=== PATIENT | female | born 1990 | race Caucasian/White ===

== ENCOUNTER 2016-12-01 13:26 | Emergency (ER) | payer MEDICAID ==
[2016-12-01] MEDS ORDERED: LIDOCAINE HCL 2% JELLY 1 APP/5 ML TUBE ONE (14:30)
[2016-12-01] MEDS ORDERED: LIDOCAINE HCL 1% 20 ML VIAL ONE (14:39)
[2016-12-01] MEDS ORDERED: BENZOCAINE/LANOLIN/ALOE 1 SPRAY BOTTLE TOPICAL ONE (15:00)
[2016-12-01] MEDS ORDERED: TETANUS/DIPTHERIA 0.5 ML DISP.SYRIN IM ONE (15:38)
--- NOTE | 2016-12-01 15:41 | ER NURSING DOCUMENTATION ---
Nurse's Notes [facility] Name:Oanh Rosario Age:26 yrs Sex:Female :1990 Arrival Date:12/01/2016 Time:13:26 Bed3 Private MD:Megha Hernandez Diagnosis:Vaginal Laceration Presentation: 12/01 13:32 Transition of care: Home. nf 13:32 Acuity: BEN 3 nf 13:32 Method Of Arrival: Walk In nf 13:48 Notified ED Physician of patient's arrival and CC Mack Bear notified. nf 13:48 Presenting complaint: Patient states: vaginal pain and labial pain, concerned her IUD nf has migrated and cut her; last intercourse 2 days ago, boyfriend has a genital piercing. Triage Assessment: 13:51 General: Appears in no apparent distress, well nourished, well groomed, Behavior is nf anxious. Pain: Complains of pain in vagina and labia. Historical: - Allergies: No known drug Allergies; - Home Meds: 1. None - PMHx: gravida5 para0; - PSHx: ankle; multiple D&Cs; - Tetanus: unknown. - Ebola Screening: : No symptoms or risks identified at this time. . - Immunization history: Unable to Obtain. - Social history: Smoking status: Patient uses tobacco products, current every day smoker. Patient uses alcohol occasionally. marijuana. Screenin:54 Infectious Disease Risk None. Abuse screen: Denies threats or abuse. Nutritional nf screening: No deficits noted. Assessment: 13:54 See Triage Assessment done by same RN. GI: Abdomen is non- distended. nf 14:58 Reassessment: Saida in ER for exam and laceration repair, escorted by OB nurse nf Stephenie. Vital Signs: 13:52 BP 128 / 82; Pulse 98; Resp 16; Temp 98.1(O); Pulse Ox 94% on R/A; Weight 81.65 kg; nf Height 5 ft. 11 in. (180.34 cm); Pain 6/10; 14:20 BP 146 / 90; Pulse 93; Resp 18; Pulse Ox 95% on R/A; dg 15:12 BP 136 / 100; Pulse 88; Resp 22; Pulse Ox 92% on R/A; dg 15:32 BP 137 / 83; dg 13:52 Body Mass Index 25.10 (81.65 kg, 180.34 cm) nf ED Course: 13:29 Patient arrived in ED. arc 13:29 Megha Hernandez is Private Physician. arc 13:32 Evie Thomas, RN is Primary Nurse. nf 13:32 Triage completed. nf 13:54 Arm band placed on Bed in low position Call Light in Reach Gowned HOB Elevated Side nf rails up x1. 13:54 Valuables Remains with patient. Door closed. Noise minimized. Lights dimmed. Moved to private room. Verbal reassurance given. Warm blanket given. Pillow given. Diet: Patient is NPO. 13:56 Ashok Giron MD is Attending Physician. 14:21 Assist Provider Assist provider with pelvic exam: Performed by Ashok Giron MD Patient nf tolerated poorly. chaperoned by [facility] nurse Stephenie. 15:14 Jimmy Valdivia MD is Referral Physician. 15:[address] Valdivia with vaginal exam, speculum exam, and repair dg of laceration of labia minora. 15:17 Assist Provider Assist provider with laceration repair on labia minor that was between nf 2.6 to 7.5 cm using sutures. Set up tray. Performed by Jimmy Valdivia MD Dressed with none Patient tolerated well. Administered Medications: 14:20 Drug: Lidocaine Ointment (2%) 1 application; {Note: by [facility] nurse Stephenie.} nf Route: Topical; Site: wound; 15:42 Follow up: Response: No adverse reaction nf 15:00 Drug: Lidocaine (1 %) 10 ml; {Note: to bedside for administration by DrK.} Route: nf Infiltration; 15:41 Follow up: Response: No adverse reaction nf 15:28 Drug: Adacel 0.5 ml; {Vault Person: Sanofi Pasteur ([employer]). Exp: 08/15/2018. Lot #: [id number]. } Route: IM; Site: right deltoid; 15:41 Follow up: Response: No adverse reaction nf Outcome: 15:14 Discharge ordered by . 15:36 Discharged to home ambulatory. nf 15:36 Condition: improved 15:36 Discharge Assessment: Patient awake, alert and oriented x 3. No cognitive and/or functional deficits noted. Patient verbalized understanding of disposition instructions. 15:36 Discharge instructions given to patient, Instructed on discharge instructions, follow up and referral plans. wound care, Demonstrated understanding of instructions. 15:41 Patient left the ED. nf 12/02 14:02 Discharge F/U Call: Unable to reach: no answer domingo Signatures: Brynn Sosa RN Evie Edouard ma, RN RN nf Meyer, John, MD MD jm Green, Debra dg Chew, Amelia, Ronnie Reg arc
--- NOTE | 2016-12-01 15:41 | ER PHYSICIAN DOCUMENTATION ---
Physician Documentation [facility] Name:Oanh Rosario Age:26 yrs Sex:Female :1990 Arrival Date:12/01/2016 Time:13:26 Bed3 Private MD:Megha Hernandez ED, John Disposition: 12/01/16 15:14 Discharged to Home/Self Care. Impression: Vaginal Laceration. - Condition is Good. - Discharge Instructions: VAGINAL TEAR (non-obstetric). - Medical Reconciliation form form. - Follow up: Jimmy Valdivia MD; When: FridayDecember 09; Reason: Recheck today's complaints, Continuance of care. - Problem is new. - Symptoms have improved. HPI: 12/01 14:41 This 26 yrs old Female presents to ER via Walk In with complaints of Vaginal jm Pain. 14:41 The patient presents with vaginal bleeding that is moderate, laceration to the L inner jm labia minora fold. . Onset: The symptoms/episode began/occurred today. Associated signs and symptoms: Pertinent positives: hematuria. The patient has not experienced similar symptoms in the past. Pt states that 3 days she was having intercourse w her boyfriend and it hurt. She noted some bleeding and pain, but thought she was on her period. Today she was urinating and felt a tear and started bleeding. She said she bleed a lot, but its the pain that brought her in. She noted a tear when examining herself. . Historical: - Allergies: No known drug Allergies; - Home Meds: 1. None - PMHx: gravida5 para0; - PSHx: ankle; multiple D&Cs; - Tetanus: unknown. - Ebola Screening: : No symptoms or risks identified at this time. . - Immunization history: Unable to Obtain. - Social history: Smoking status: Patient uses tobacco products, current every day smoker. Patient uses alcohol occasionally. marijuana. ROS: 14:52 Positive for pelvic pain, hematuria, vaginal bleeding. 14:52 Constitutional: Negative for fever, malaise. 14:52 Skin: Positive for laceration(s). 14:52 Hematologic/Lymphatic: Negative for abnormal bleeding, swollen nodes. Exam: 14:53 Constitutional: The patient appears alert, awake. 14:53 Cardiovascular: Rate: normal, Rhythm: regular. 14:53 Respiratory: Respirations: normal, Breath sounds: are normal. 14:53 Abdomen/GI: Inspection: abdomen appears normal, Palpation: abdomen is soft and non-tender. 14:53 : Pelvic Exam: External exam: 3cm superficial mucosal laceration to the L inner labia minora fold that is oozing blood. I could not examine further due to pain. , the nurse was present for the exam, Bladder: is normal. 14:53 Psych: Behavior/mood is pleasant, cooperative, anxious, Affect is calm. Vital Signs: 13:52 BP 128 / 82; Pulse 98; Resp 16; Temp 98.1(O); Pulse Ox 94% on R/A; Weight 81.65 kg; nf Height 5 ft. 11 in. (180.34 cm); Pain 6/10; 14:20 BP 146 / 90; Pulse 93; Resp 18; Pulse Ox 95% on R/A; dg 15:12 BP 136 / 100; Pulse 88; Resp 22; Pulse Ox 92% on R/A; dg 15:32 BP 137 / 83; dg 13:52 Body Mass Index 25.10 (81.65 kg, 180.34 cm) nf MDM: 13:55 Patient medically screened. jm 14:55 Differential diagnosis: vaginal trauma. Data reviewed: vital signs, nurses notes, and jm as a result, I will initiate a consult, from a WRAPPER STRIPPER. Counseling: I had a detailed discussion with the patient and/or guardian regarding: the historical points, exam findings, and any diagnostic results supporting the discharge/admit diagnosis. Physician consultation: Jimmy Valdivia MD regarding patient's condition, and will see patient in ED, immediately. ED course: DR. Treviño will sew the laceration. . Dispensed Medications: 14:20 Drug: Lidocaine Ointment (2%) 1 application; {Note: by [facility] nurse Stephenie.} nf Route: Topical; Site: wound; 15:42 Follow up: Response: No adverse reaction nf 15:00 Drug: Lidocaine (1 %) 10 ml; {Note: to bedside for administration by DrKamila.} Route: nf Infiltration; 15:41 Follow up: Response: No adverse reaction nf 15:28 Drug: Adacel 0.5 ml; {Mangle Roll Operator: Sanofi Pasteur ([employer]). Exp: 08/15/2018. Lot #: [id number]. } Route: IM; Site: right deltoid; 15:41 Follow up: Response: No adverse reaction nf Signatures: Evie Thomas RN RN nf Meyer, John, MD MD jm Green, Debra dg
== END 2016-12-01 15:41 | disposition home or self-care (01) ==
LOC: ER 13:26
DX: S31.41XA Laceration without foreign body of vagina and vulva, initial encounter (principal); W45.8XXA Other foreign body or object entering through skin, initial encounter; Z23 Encounter for immunization; F17.210 Nicotine dependence, cigarettes, uncomplicated
CPT/HCPCS: 12002; 90471; 90715; 99283

== ENCOUNTER 2017-03-01 10:53 | Emergency (ER) | payer MEDICAID ==
--- NOTE | 2017-03-01 11:16 | ER NURSING DOCUMENTATION ---
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 Transition sc1 of care: Home. Complicating Factors: There are no complicating factors for this patient. Notified ED Physician of patient's arrival and CC Dr. Pollock notified. 10:56 Acuity: BEN 4 sc1 10:56 Method Of Arrival: Private Vehicle sc1 Triage Assessment: 11:02 General: Appears in no apparent distress, well developed, well nourished, well groomed, sc1 Behavior is cooperative, pleasant. Pain: Complains of pain in Right first web space. Injury Description: Puncture sustained to right hand is superficial, was sustained less than 30 minutes ago. Historical: - Allergies: No known drug Allergies; - Home Meds: 1. Etanercept - PMHx: None; - PSHx: None; - Ebola Screening: : Patient negative for fever greater than or equal to 101.5 degrees Fahrenheit, and additional compatible Ebola Virus Disease symptoms. Patient denies exposure to infectious person. Patient denies travel to an Ebola-affected area in the 21 days before illness onset. No symptoms or risks identified at this time. . - Immunization history: Flu Vaccine < 1 year. - Social history: Smoking status: Patient states was never smoker of tobacco. Patient/guardian denies using alcohol, street drugs, IV drugs, marijuana. Screenin:04 Infectious Disease Risk None. Abuse screen: Denies threats or abuse. Nutritional sc1 screening: No deficits noted. Vital Signs: 10:59 BP 116 / 64; Pulse 79; Resp 16; Temp 98.4(O); Pulse Ox 97% on R/A; Weight 86.18 kg (R); arc Height 5 ft. 11 in. (180.34 cm) (R); Pain 7/10; 10:59 Body Mass Index 26.50 (86.18 kg, 180.34 cm) arc ED Course: 10:54 Patient arrived in ED. ama 10:55 Megha Hernandez is Private Physician. ama 10:56 Rachael López, RN is Primary Nurse. [facility] 10:58 Waldemar Pollock MD is Attending Physician. [facility] 11:01 Triage completed. wi1 11:03 Notified ED Physician of patient's arrival and chief complaint. Dr. Pollock notified. Arm sc1 band placed on Bed in low position Call Light in Reach. 11:09 Wound care to puncture located on left hand was cleaned with soap and water, dressed arc with bacitracin cling, band aid, Patient tolerated well. 11:10 Megha Hernandez is Referral Physician. tl1 Administered Medications: No medications were administered Outcome: 11:11 Discharge ordered by MD. 1 11:14 Discharged to home ambulatory. [facility] [place] 11:14 Condition: stable 11:14 Discharge instructions given to patient, Instructed on discharge instructions, follow up and referral plans. medication usage, Demonstrated understanding of instructions, medications, Prescriptions given X 1. 11:15 Patient left the ED. [facility] [place] 07/02 14:58 Discharge F/U Call: Unable to reach: no answer lc Signatures: Maxine Oglesby, ERIN RN Rachael López, ERIN RN wi1 Alfred Landeros, Reg Reg neftalia Waldemar Pollock MD MD [facility] Lexie Hernandez, Reg Reg arc
--- NOTE | 2017-03-03 11:15 | ER PHYSICIAN DOCUMENTATION ---
Physician Documentation [facility] Name:Oanh Rosario Age:26 yrs Sex:Female :1990 Arrival Date:03/01/2017 Time:10:53 Bed1 Private MD:Megha Hernandez ED, Tom Disposition: 03/01/17 11:11 Discharged to Home/Self Care. Impression: Puncture Wound of Hand. - Condition is Good. - Discharge Instructions: LACERATION, Hand. - Prescriptions for Keflex 500 mg Oral Capsule - take 1 capsule by ORAL route every 6 hours for 10 days; 40 capsule. - Medical Reconciliation form form. - Follow up: Megha Hernandez; When: 2 - 3 days; Reason: Recheck today's complaints. - Problem is new. - Symptoms have improved. HPI: 03/01 11:05 This 26 yrs old Female presents to ER via Private Vehicle with complaints of tl1 Laceration To Hand - LEFT. 11:05 The patient has a laceration related to: a puncture wound from a knife , occurred at tl1 home, and there are no complicating factors. The injury was as she was cutting some prime rib, the knife slipped, poking into her thenar eminence of the left hand. There was some brief bleeding and she washed it out right away. She came in concerned about the bleeding (which has now stopped) and concern about the possible need for sutures. No other complaints.. The laceration(s) is(are) located on the palm of left hand, thenar eminence. Historical: - Allergies: No known drug Allergies; - Home Meds: 1. Etanercept - PMHx: None; - PSHx: None; - Ebola Screening: : Patient negative for fever greater than or equal to 101.5 degrees Fahrenheit, and additional compatible Ebola Virus Disease symptoms. Patient denies exposure to infectious person. Patient denies travel to an Ebola-affected area in the 21 days before illness onset. No symptoms or risks identified at this time. . - Immunization history: Flu Vaccine < 1 year. - Social history: Smoking status: Patient states was never smoker of tobacco. Patient/guardian denies using alcohol, street drugs, IV drugs, marijuana. ROS: 11:10 Constitutional: Negative for fever, chills, and weight loss. tl1 11:10 Skin: Positive for puncture. 11:10 All other systems are negative. Exam: 11:10 Musculoskeletal/extremity: Extremities: grossly normal except: noted in the left tl1 thenar eminence: puncture, 7 mm long. 11:10 Constitutional: The patient appears in no acute distress, alert, awake, comfortable, non-toxic. 11:10 Cardiovascular: Rate: normal. 11:10 Respiratory: Respirations: normal. 11:10 Skin: see above. Vital Signs: 10:59 BP 116 / 64; Pulse 79; Resp 16; Temp 98.4(O); Pulse Ox 97% on R/A; Weight 86.18 kg (R); arc Height 5 ft. 11 in. (180.34 cm) (R); Pain 7/10; 10:59 Body Mass Index 26.50 (86.18 kg, 180.34 cm) arc MDM: 10:58 Patient medically screened. tl1 11:15 Differential diagnosis: superficial laceration. Data reviewed: vital signs, nurses tl1 notes, and as a result, I will discharge patient. Counseling: I had a detailed discussion with the patient and/or guardian regarding: the historical points, exam findings, and any diagnostic results supporting the discharge/admit diagnosis, the need for outpatient follow up, to return to the emergency department if symptoms worsen or persist or if there are any questions or concerns that arise at home. Response to treatment: There is no appreciated change of the patient's symptoms at this time, and as a result, I will discharge patient. Special discussion: This is a superficial injury. I told her the best treatment now would be to numb it up, irrigate it, and dress it. she declined the numbing and irrigation, said she had cleaned it out at home real well,and thought the risk for infection was low. I told her that she may be OK, but recommended prophylactic antibiotics, to which, she agreed.. Dispensed Medications: No medications were administered Signatures: Rachael López RN RN sc1 Waldemar Pollock MD MD tl1
== END 2017-03-01 11:15 | disposition home or self-care (01) ==
LOC: ER 10:53
DX: S61.432A Puncture wound without foreign body of left hand, initial encounter (principal); W26.0XXA Contact with knife, initial encounter; Y92.019 Unspecified place in single-family (private) house as the place of occurrence of the external cause
CPT/HCPCS: 99283